=== PATIENT | female | born 1990 | race African-American/Black ===

== ENCOUNTER 2020-03-01 11:17 | Emergency (ER) | payer MEDICAID ==
[~2020-03-01] VITALS: Ht 162.6 cm; Wt 73.0 kg
[2020-03-01 11:29] VITALS: BP 120/57
[2020-03-01] MEDS ORDERED: IBUPROFEN 600MG TABLET PO STA (11:53)
== END 2020-03-01 12:11 | disposition home or self-care (01) ==
LOC: ER 11:17
DX: H00.012 Hordeolum externum right lower eyelid (principal); H01.002 Unspecified blepharitis right lower eyelid
CPT/HCPCS: 99283

== ENCOUNTER 2021-10-07 13:00 | Emergency (ER) | payer MEDICAID ==
[~2021-10-07] VITALS: Ht 160 cm; Wt 73.0 kg
[2021-10-07 13:05] VITALS: BP 105/67
[2021-10-07] MEDS ORDERED: ACETAMINOPHEN 500MG TABLET PO ONE (13:15)
== END 2021-10-07 16:41 | disposition left against medical advice (07) ==
LOC: ER 13:00
DX: R43.8 Other disturbances of smell and taste (principal); R11.0 Nausea; Z20.822 Contact with and (suspected) exposure to COVID-19
CPT/HCPCS: 71045; 87426; 99284